=== PATIENT | female | born 1975 | race Caucasian/White ===

== ENCOUNTER 2016-02-22 14:40 | Inpatient (IN) | payer OTHER ==
[~2016-02-22] VITALS: Ht 160 cm; Wt 152.8 kg
[2016-02-22] MEDS ORDERED: DUONEB INH ONE ×2 (15:10)
[2016-02-22] MEDS ORDERED: METHYLPRED SOD SUCC 125 MG/2 ML VIAL ONE (15:23)
[2016-02-22] MEDS ORDERED: CEFTRIAXONE 1 GM VIAL ONE (16:20)
[2016-02-22] MEDS ORDERED: SODIUM CHLORIDE 0.9% 100 ML IV ONE (16:21)
[2016-02-22] MEDS ORDERED: KETOROLAC 30 MG/ML VIAL ONE (16:21)
[2016-02-22] MEDS ORDERED: SALINE FLUSH 10 ML FLUSH PRN (18:00)
[2016-02-22 18:35] VITALS: RESP 24; TEMP 98.7
[2016-02-22 18:36] VITALS: Ht 160 cm; Wt 152.8 kg
[2016-02-22] MEDS: AZITHROMYCIN 250 MG TAB PO SCH (19:28)
[2016-02-22] MEDS: METHYLPRED SOD SUCC 125 MG/2 ML VIAL IV SCH (19:29)
[2016-02-22] MEDS: SALINE FLUSH 10 ML FLUSH SCH (19:29)
[2016-02-22 19:53] VITALS: BP_SYST 142; BP_SYST 152
[2016-02-22 23:45] VITALS: RESP 22
[2016-02-23 00:08] VITALS: BP_SYST 174; RESP 20; TEMP 98.6
[2016-02-23 03:42] VITALS: BP_SYST 161; RESP 20; TEMP 97.4
[2016-02-23] MEDS: SODIUM CHLORIDE 0.9% FLUSH BAG 500 ML IV SCH (06:12)
[2016-02-23 07:24] VITALS: BP_SYST 126; RESP 20; TEMP 97.5
[2016-02-23] MEDS: METHYLPRED SOD SUCC 125 MG/2 ML VIAL IV SCH ×2 (09:04→20:34)
[2016-02-23] MEDS: AZITHROMYCIN 250 MG TAB PO SCH (09:04)
[2016-02-23] MEDS: SALINE FLUSH 10 ML FLUSH SCH ×2 (09:04→20:34)
[2016-02-23] MEDS: CEFTRIAXONE 1 GM in SODIUM CHLORIDE 0.9% 50 ML IV SCH (09:04)
[2016-02-23] MEDS: ENOXAPARIN 40 MG/0.4 ML SYR SUBQ SCH (09:05)
[2016-02-23] MEDS ORDERED: TRAMADOL 50 MG TAB PO PRN (09:25)
[2016-02-23] MEDS ORDERED: ACETAMINOPHEN 325 MG TAB PO PRN (09:25)
[2016-02-23 11:28] VITALS: BP_SYST 153; RESP 24; TEMP 97.3
[2016-02-23] MEDS: METOPROLOL TART 25 MG TAB PO SCH ×2 (15:52→20:34)
[2016-02-23] MEDS: NEB-ALBUTEROL 2.5 MG/3 ML INH PRN (19:18)
[2016-02-23 19:40] VITALS: BP_SYST 155; RESP 22; TEMP 98.9
[2016-02-23 23:23] VITALS: BP_SYST 150; RESP 20; TEMP 98
[2016-02-24 03:30] VITALS: BP_SYST 143; RESP 20; TEMP 97.9
[2016-02-24] MEDS: SODIUM CHLORIDE 0.9% FLUSH BAG 500 ML IV SCH (06:07)
[2016-02-24 07:39] VITALS: BP_SYST 116; RESP 20; TEMP 97.3
[2016-02-24] MEDS: SALINE FLUSH 10 ML FLUSH SCH (08:40)
[2016-02-24] MEDS: METOPROLOL TART 25 MG TAB PO SCH (08:40)
[2016-02-24] MEDS: AZITHROMYCIN 250 MG TAB PO SCH (08:40)
[2016-02-24] MEDS: ENOXAPARIN 40 MG/0.4 ML SYR SUBQ SCH (08:41)
[2016-02-24] MEDS: CEFTRIAXONE 1 GM in SODIUM CHLORIDE 0.9% 50 ML IV SCH (08:41)
[2016-02-24] MEDS: METHYLPRED SOD SUCC 125 MG/2 ML VIAL IV SCH (08:41)
[2016-02-24 11:31] VITALS: BP_SYST 155; RESP 20; TEMP 98.2
[2016-02-24] MEDS: NEB-ALBUTEROL 2.5 MG/3 ML INH PRN (12:11)
[2016-02-24 15:29] VITALS: BP_SYST 131; RESP 20; TEMP 97.7
[2016-02-24 17:08] VITALS: BP_SYST 131; RESP 20; TEMP 97.7
== END 2016-02-24 17:34 | disposition home or self-care (01) | DRG 194 ==
LOC: ENRESERVTM → ENRESERVDT → ER 14:40 → ENPENDDIS 17:10 → EMR 17:10 → PCU2 18:45
PROVIDERS: ADMIT Family Medicine Addiction Medicine; ATTEND Family Medicine Addiction Medicine
DX: J18.9 Pneumonia, unspecified organism (principal); J45.41 Moderate persistent asthma with (acute) exacerbation; Z68.43 Body mass index [BMI] 50.0-59.9, adult; R09.02 Hypoxemia; I35.0 Nonrheumatic aortic (valve) stenosis; I51.7 Cardiomegaly; I10 Essential (primary) hypertension; E66.01 Morbid (severe) obesity due to excess calories; G47.33 Obstructive sleep apnea (adult) (pediatric); G47.62 Sleep related leg cramps; F51.9 Sleep disorder not due to a substance or known physiological condition, unspecified
CPT/HCPCS: 36415; 71010; 80048; 80053; 82553; 83605; 83880; 84484; 85025; 86713; 87040; 87278; 87299; 87804; 93005; 93306; 93970; 94640; 94799; 96365; 96375; 99222; 99233; 99239